=== PATIENT | female | born 1970 | race Two or more races ===

== ENCOUNTER 2018-04-21 09:30 | Inpatient (IN) | payer OTHER ==
[~2018-04-21] VITALS: Ht 162.6 cm; Wt 57.6 kg
[2018-04-21] MEDS ORDERED: NEURONTIN800 MG (10:17)
[2018-04-21] MEDS ORDERED: MIRTAZAPINE15 M1 (10:17)
[2018-04-21] MEDS ORDERED: ESTAZOLAM2 MG (10:18)
[2018-04-21] MEDS ORDERED: [UNRECOGNIZED DRUG - OTHER] (10:19)
[2018-04-21] MEDS ORDERED: KETO10TA2 PO (15:34)
[2018-05-09] MEDS ORDERED: TRAM1TAB98 PO (08:23)
[2018-05-09] MEDS ORDERED: PANTOPRAZOLE SO40 MG PO (08:23)
[2018-05-09] MEDS ORDERED: Intestinex CAP PO (08:24)
== END 2018-05-09 11:32 | disposition home or self-care (01) | DRG 331 ==
LOC: SURG 09:30 → O/R 05-05 05:54 → SURH 05-05 05:54 → SURG 05-05 09:30 → SURH 05-05 12:14 → SURG 05-05 12:45 → SURH 05-09 11:32
PROVIDERS: Surgery
PROC: 07TC4ZZ Resection of Pelvis Lymphatic, Percutaneous Endoscopic Approach (ICD-10-PCS; 2018-05-05)
PROC: 0DTF4ZZ Resection of Right Large Intestine, Percutaneous Endoscopic Approach (ICD-10-PCS; principal; 2018-05-05 12:45)
DX: D12.2 Benign neoplasm of ascending colon (principal); M79.7 Fibromyalgia; R19.4 Change in bowel habit

== ENCOUNTER 2018-04-21 10:40 | Emergency (ER) | payer OTHER ==
[~2018-04-21] VITALS: Ht 162.6 cm; Wt 64.9 kg
[~2018-04-21 10:40] MED LIST: ESTAZOLAM2 MG; MIRTAZAPINE15 M1; NEURONTIN800 MG; [UNRECOGNIZED DRUG - OTHER]
[2018-04-21] MEDS ORDERED: KETO10TA2 PO (15:34)
== END 2018-04-21 15:42 | disposition home or self-care (01) ==
LOC: ER 10:40
DX: R10.31 Right lower quadrant pain (principal)

== ENCOUNTER 2018-05-23 13:42 | Inpatient (IN) | payer OTHER ==
[~2018-05-23] VITALS: Ht 162.6 cm; Wt 60.3 kg
[~2018-05-23 13:42] MED LIST changes: +Intestinex CAP PO; +KETO10TA2 PO; +PANTOPRAZOLE SO40 MG PO; +TRAM1TAB98 PO
[2018-05-25] MEDS ORDERED: OMEPRAZOLE20 MG PO (09:49)
[2018-05-25] MEDS ORDERED: PERCOCET 5-3251 EACH PO (09:49)
[2018-05-25] MEDS ORDERED: INTESTINEX680 M1 PO (09:49)
== END 2018-05-25 10:20 | disposition home or self-care (01) | DRG 948 ==
LOC: ER 13:42 → SURG 17:04
PROC: BW21ZZZ Computerized Tomography (CT Scan) of Abdomen and Pelvis (ICD-10-PCS; principal; 2018-05-24)
DX: G89.18 Other acute postprocedural pain (principal); R10.84 Generalized abdominal pain; M79.7 Fibromyalgia; E86.0 Dehydration

== ENCOUNTER 2019-05-12 07:20 | Day surgery (SDC) | payer OTHER ==
[~2019-05-12 07:20] MED LIST changes: +INTESTINEX680 M1 PO; +OMEPRAZOLE20 MG PO; +PERCOCET 5-3251 EACH PO
== END 2019-05-12 12:30 | disposition home or self-care (01) ==
LOC: AMB-ENDOS 07:20 → EDSTATUS 13:00
DX: D37.4 Neoplasm of uncertain behavior of colon (principal); K64.8 Other hemorrhoids